=== PATIENT | female | born 2005 | race African-American/Black ===

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

== ENCOUNTER 2024-06-27 18:45 | Emergency (ER) | payer MEDICAID, OTHER ==
[~2024-06-27] VITALS: Ht 160 cm; Wt 90.0 kg
[2024-06-27 18:46] VITALS: O2SAT 98
[2024-06-27 19:11] LABS: CLARITY URINE CLOUDY (CLEAR); COLOR URINE YELLOW (YELLOW); GLUCOSE URINE NEGATIVE (NEGATIVE); KETONES URINE 2+ (NEGATIVE); LEUKOCYTE ESTERASE URINE 2+ (NEGATIVE); NITRITE URINE NEGATIVE (NEGATIVE); OCCULT BLOOD URINE 2+ (NEGATIVE); PH URINE 5.5 (4.5-8.0); PROTEIN URINE TRACE (NEGATIVE); SPECIFIC GRAVITY URINE 1.023 (1.005-1.030)
[2024-06-27 19:22] LABS: BACTERIA URINE 2+; SQUAMOUS EPITHELIAL CELL URINE 1+ /lpf (RARE/1+); TRICHOMONAS URINE 1+
[2024-06-27 20:04] LABS: BASOPHILS % 0.2 % (0.0-2.0); EOSINOPHILS % 1.8 % (0.0-5.0); HEMATOCRIT. 37.3 % (36.0-48.0); HEMOGLOBIN. 12.8 g/dL (12.0-16.0); LYMPHOCYTES % 24.3 % (20.0-50.0); MEAN CORPUSCULAR HEMOGLOBIN 32.7 pg (28.0-32.0); MEAN CORPUSCULAR HGB CONC 34.3 g/dL (31.0-37.0); MEAN CORPUSCULAR VOLUME 95.4 fL (81.0-99.0); MEAN PLATELET VOLUME 9.3 fl (7.4-10.4); MONOCYTES % 7.4 % (2.0-8.0); NEUTROPHILS % 66.3 % (40.0-76.0); PLATELET 290 x1000/uL (130-400); RED BLOOD CELL COUNT 3.91 mill/uL (4.2-5.4); RED CELL DISTRIBUTION WIDTH 12.5 % (11.6-14.6); WHITE BLOOD COUNT 4.9 x1000/uL (4.5-11.0)
[2024-06-27 20:08] LABS: CARBON DIOXIDE 23 mEq/L (21-32); CHLORIDE 105 mEq/L (98-107); POTASSIUM 3.6 mEq/L (3.5-5.1); SODIUM 134 mEq/L (136-145)
[2024-06-27 20:09] LABS: CALCIUM 9.7 mg/dL (8.7-10.4)
[2024-06-27 20:14] LABS: CREATININE 0.6 mg/dL (0.6-1.0); GLUCOSE 103 mg/dL (70-105); UREA NITROGEN BLOOD 5 mg/dL (9-23)
[2024-06-27 20:16] LABS: HCG SCREEN POSITIVE
[2024-06-27] MEDS ORDERED: NITR-87 MT (21:36)
[2024-06-27 21:58] VITALS: BP 122/70; PULSE 79; RESP 20; TEMP 98.3
== END 2024-06-27 22:01 | disposition home or self-care (01) ==
LOC: ER 18:49
DX: O20.0 Threatened abortion (principal); Z3A.14 14 weeks gestation of pregnancy
CPT/HCPCS: 36415; 76801; 80048; 81003; 81025; 84702; 84703; 85025; 86850; 86900; 99284

== ENCOUNTER 2024-11-23 18:05 | Emergency (ER) | payer MEDICAID ==
[~2024-11-23] VITALS: Ht 152.4 cm; Wt 93.0 kg
[~2024-11-23 18:05] MED LIST changes: +NITR-87 MT
[2024-11-23 18:42] LABS: CLARITY URINE CLEAR (CLEAR); COLOR URINE YELLOW (YELLOW); GLUCOSE URINE NEGATIVE (NEGATIVE); KETONES URINE NEGATIVE (NEGATIVE); LEUKOCYTE ESTERASE URINE 3+ (NEGATIVE); NITRITE URINE NEGATIVE (NEGATIVE); OCCULT BLOOD URINE NEGATIVE (NEGATIVE); PH URINE 8.5 (4.5-8.0); PROTEIN URINE NEGATIVE (NEGATIVE); UROBILINOGEN URINE 0.2 E.U./dL (0.2-1.0)
[2024-11-23 19:14] LABS: BACTERIA URINE NONE SEEN; RBC URINE NONE SEEN /hpf (0-2); SQUAMOUS EPITHELIAL CELL URINE FEW /lpf (RARE/1+)
[2024-11-23 19:15] LABS: BASOPHILS % 0.3 % (0.0-2.0); EOSINOPHILS % 5.1 % (0.0-5.0); HEMATOCRIT. 34.3 % (36.0-48.0); HEMOGLOBIN. 11.5 g/dL (12.0-16.0); LYMPHOCYTES % 13.5 % (20.0-50.0); MEAN CORPUSCULAR HGB CONC 33.5 g/dL (31.0-37.0); MEAN CORPUSCULAR VOLUME 95.3 fL (81.0-99.0); MEAN PLATELET VOLUME 9.8 fl (7.4-10.4); MONOCYTES % 10.4 % (2.0-8.0); NEUTROPHILS % 70.7 % (40.0-76.0); PLATELET 244 x1000/uL (130-400); RED CELL DISTRIBUTION WIDTH 12.9 % (11.6-14.6); WHITE BLOOD COUNT 7.9 x1000/uL (4.5-11.0)
[2024-11-23 19:25] LABS: CHLORIDE 105 mEq/L (98-107); POTASSIUM 3.8 mEq/L (3.5-5.1); SODIUM 136 mEq/L (136-145)
[2024-11-23 19:26] LABS: CARBON DIOXIDE 22 mEq/L (21-32)
[2024-11-23 19:27] LABS: CALCIUM 9.3 mg/dL (8.7-10.4)
[2024-11-23 19:31] LABS: CREATININE 0.7 mg/dL (0.6-1.0); GLUCOSE 86 mg/dL (70-105)
[2024-11-23 19:32] LABS: UREA NITROGEN BLOOD 8 mg/dL (9-23)
[2024-11-23 19:45] LABS: B-HCG QUANTITATIVE 4976 mIU/mL (<3)
[2024-11-23 20:00] VITALS: TEMP 36.89184
[2024-11-23] MEDS: PREDNISONE 20MG TABLET PO STA (21:00)
[2024-11-23 21:04] VITALS: PULSE 92; RESP 18; O2SAT 100
[2024-11-23] MEDS: ALBUTEROL (0.083%) 2.5MG/3ML NEB HHN STA (21:04)
[2024-11-23] MEDS: IPRATROPIUM BROMIDE (0.02%) 0.5MG/2.5ML NEB HHN STA (21:04)
[2024-11-23 21:30] VITALS: BP 115/68; PULSE 93; RESP 16; O2SAT 99
[2024-11-23] MEDS ORDERED: P50 MT (21:38)
[2024-11-23] MEDS ORDERED: AMOX-494 MT (21:39)
== END 2024-11-23 21:50 | disposition home or self-care (01) ==
LOC: ER 18:05
DX: O99.513 Diseases of the respiratory system complicating pregnancy, third trimester (principal); J18.9 Pneumonia, unspecified organism; Z3A.30 30 weeks gestation of pregnancy; Z79.52 Long term (current) use of systemic steroids; Z88.6 Allergy status to analgesic agent
CPT/HCPCS: 80048; 81003; 84702; 85025; 86850; 86900; 86901; 36415; 71045; 76815; 94640; 99285; J7512; Z7610 ×3